=== PATIENT | female | born 2000 | race Hispanic/Latino ===

== ENCOUNTER 2021-09-04 10:55 | Outpatient (CLI) | payer OTHER ==
[2021-09-04 11:50] LABS: Alanine Aminotransferase 6 units/L (7-56); Albumin 4.2 g/dL (3.9-5); Blood Urea Nitrogen 12 mg/dL (7-17); Calcium 9.8 mg/dL (8.4-10.2); Chol/HDL Ratio 2.27 %; HDL Cholesterol 54 mg/dL (40-59); Hemolysis Index 0; Iron 37 ug/dL (37-170); LDL Cholesterol,Direct 64 mg/dL (50-130); Total Iron Binding Capacity 226 mcg/dL (250-450)
[2021-09-04 11:54] LABS: Basophils % (Auto) 0.5 % (0.0-1.8); Eosinophils # (Auto) 0.3 K/mm3 (0.0-0.4); Eosinophils % (Auto) 3.7 % (0.0-4.3); Hematocrit 31.1 % (30.3-42.9); Hemoglobin 9.7 gm/dl (10.1-14.3); Lymphocytes # (Auto) 1.7 K/mm3 (1.2-5.4); Lymphocytes % (Auto) 24.9 % (13.4-35.0); Mean Corpuscular HGB Conc 31 % (30-34); Mean Corpuscular Volume 80 fl (79-97); Monocytes # (Auto) 0.3 K/mm3 (0.0-0.8); Monocytes % (Auto) 4.6 % (0.0-7.3); Platelet Count 452 K/mm3 (140-440); Red Blood Count 3.91 M/mm3 (3.65-5.03); Red Cell Distribution Width 17.1 % (13.2-15.2)
[2021-09-04 12:07] LABS: INR 1.05 (0.87-1.13)
[2021-09-04 12:08] LABS: Partial Thromboplastin Time 29.8 Sec. (24.2-36.6)
[2021-09-04 12:11] LABS: BUN/Creatinine Ratio 30
[2021-09-07 12:27] LABS: Vitamin D, 25-OH, D2 <4 ng/mL
== END 2021-09-04 10:56 | disposition home or self-care (01) ==
LOC: LAB 10:55
PROVIDERS: ATTEND Internal Medicine
DX: M13.0 Polyarthritis, unspecified (principal); D64.9 Anemia, unspecified; R53.83 Other fatigue; E55.9 Vitamin D deficiency, unspecified
CPT/HCPCS: 36415; 80053; 80061; 82306; 82728; 83550; 84443; 85025; 85610; 85730; 86140; 86200; 86235; 86431